=== PATIENT | female | born 1955 | race Caucasian/White ===

== ENCOUNTER 2016-08-18 16:31 | Emergency (ER) | payer MEDICAID ==
--- NOTE | 2016-08-18 16:51 | CPEKG ---
Heart Rate: 71 RR Interval: 845 P-R Interval: 152 QRSD Interval: 90 QT Interval: 396 QTC Interval: 431 P [place]: 72 QRS [place]: 50 T Wave [place]: 54 EKG Severity - NORMAL ECG - EKG Impression: SINUS RHYTHM Electronically Signed By: Pamela Petersen 25-Aug-2016 13:53:25
[2016-08-18] MEDS ORDERED: IPRATROPIUM/ALBUTEROL 3 ML DEYVIAL IH ONE (16:52)
--- NOTE | 2016-08-18 16:56 | EDPHY ---
H & P Stated Complaint: c/o coughing /sob x 2 wks with tight chest x 1 day Time Seen by Provider: 08/18/16 16:42 HPI/ROS: 61-year-old female with history of COPD presents complaining of productive green cough, shortness of breath and wheezing for a few days. She states she has had pneumonia several times in the past she believes this is just bronchitis. She also states she has a history of chronic bronchitis. Review of systems As per HPI General no fever no chills no weakness HEENT no eye pain no eye discharge. No eye redness, no sore throat Respiratory positive cough, no shortness of breath Cardiac positive chest pain, no peripheral edema GI no abdominal pain, no diarrhea, no constipation, no nausea, no vomiting no flank pain, no hematuria, no dysuria Musculoskeletal no myalgias, no joint pain Heme no easy bruising, no easy bleeding Endo no polyuria, no polydipsia Skin no rashes, no pruritus Neuro no syncope, no dizziness, no headaches Psych is no suicidal ideation, no homicidal ideation Source: Patient - Personal History Current Tetanus Diphtheria and Acellular Pertussis (TDAP): Yes - Medical/Surgical History Hx Asthma: No Hx Chronic Respiratory Disease: Yes Hx Diabetes: No Hx Cardiac Disease: No Hx Renal Disease: No Hx Cirrhosis: No Hx Alcoholism: No Hx HIV/AIDS: No Hx Splenectomy or Spleen Trauma: No Other PMH: Hypothyroid, COPD, psoriasis. hysterectomy, - Family History Significant Family History: No pertinent family hx - Social History Smoking Status: Heavy smoker Drug Use: Marijuana - Physical Exam Exam: 61-year-old female Alert and oriented nontoxic appearance, no acute distress afebrile Atraumatic normocephalic Extraocular muscles intact, anicteric Nares mild yellowish discharge Oropharynx mild erythema no tonsillar swelling no exudate no uvular deviation, tolerating own secretions Neck supple no lymphadenopathy Lungs clear to auscultation bilaterally, scattered wheeze Heart regular rate and rhythm Abdomen normoactive bowel sounds soft nontender Extremities no cyanosis clubbing or edema Skin no rash Constitutional: Initial Vital Signs Temperature (C) 37.2 C 08/18/16 16:39 Heart Rate 77 08/18/16 16:39 Respiratory Rate 20 08/18/16 16:39 Blood Pressure 97/76 L 08/18/16 16:39 O2 Sat (%) 90 L 08/18/16 16:39 O2 Delivery Mode Room Air O2 (L/minute) 2 Allergies/Adverse Reactions: No Allergies [NKDA] Allergy (Verified 07/11/14 20:14) Home Medications: Medication Instructions Recorded Tiotropium Inhaler [Spiriva 1 puffs IH DAILY 08/14/13 Inhaler (RX)] Omeprazole Magnesium [Prilosec Otc] 20 mg PO DAILY 07/11/14 Pravastatin Sodium 20 mg PO HS 07/11/14 Albuterol [Proventil Neb] 3 ml IH DAILY 08/08/14 Aspirin EC [Aspirin EC 81 mg (*)] 81 mg PO DAILY 08/08/14 Betamethasone Dipropionate 1 jonathan TP DAILY 08/08/14 Calcium Carbonate [Tums 500MG (*)] 1,000 - 1,500 mg PO DAILY PRN 08/08/14 Levothyroxine [Synthroid 88 mcg 88 mcg PO DAILY06 08/08/14 (*)] Albuterol [Proventil Inhaler HFA 1 - 2 puffs IH Q4H PRN 08/10/14 (*)] Amoxicillin/Clavulanate Pot 875 mg PO BID #20 tab 08/18/16 [Augmentin 875 MG TAB (*)] Proair Hfa 08/18/16 methylPREDNISolone [Medrol Dose 1 each PO AD #1 ea 08/18/16 Tacho] Medical Decision Making - Diagnostics Imaging Results: Imaging Impressions Chest X-Ray 08/18/16 16:53 Impression: 1. COPD/bronchitis with no acute findings. 2. Grossly stable calcified masses. 3. Additional findings as above. ED Course/Re-evaluation: Medical decision making and ER course Patient presents complaining of productive green cough and wheezing for several days Chest x-ray negative for infiltrate EKG normal sinus rhythm no signs of ischemia Lab sent CBC within normal limits Troponin negative BMP negative Differential diagnosis considered URI, bronchitis, pneumonia, COPD exacerbation, mi While in the ER patient received prednisone 60 mg p.o., IV normal saline 1 L, DuoNeb Breath sounds markedly improved after DuoNeb Impression Acute on chronic bronchitis with COPD exacerbation Plan Home with Medrol Dosepak, Augmentin 875 twice daily times 10 days - Data Points Laboratory Results: Laboratory Results 08/18/16 16:51 08/18/16 16:51 08/18/16 08/18/16 16:51 16:51 WBC 7.33 10^3/uL 10^3/uL (3.80-9.50) RBC 5.12 10^6/uL 10^6/uL (4.18-5.33) Hgb 16.0 g/dL g/dL (12.6-16.3) Hct 48.1 % H % (38.0-47.0) MCV 93.9 fL fL (81.5-99.8) MCH 31.3 pg pg (27.9-34.1) MCHC 33.3 g/dL g/dL (32.4-36.7) RDW 12.5 % % (11.5-15.2) Plt Count 313 10^3/uL 10^3/uL (150-400) MPV 9.6 fL fL (8.7-11.7) Neut % (Auto) Not Reported Lymph % (Auto) Not Reported [place] % (Auto) Not Reported Eos % (Auto) Not Reported Baso % (Auto) Not Reported Nucleat RBC Rel Count 0.0 % % (0.0-0.2) Absolute Neuts (auto) Not Reported Absolute Lymphs (auto) Not Reported Absolute Monos (auto) Not Reported Absolute Eos (auto) Not Reported Absolute Basos (auto) Not Reported Absolute Nucleated RBC 0.00 10^3/uL 10^3/uL (0-0.01) Immature Gran % Not Reported Seg Neutrophils % 43 % % Lymphocytes % 42 % % Monocytes % 9 % % Eosinophils % 5 % % Basophils % 1 % % Immature Gran # Not Reported Absolute Seg Neuts 3.2 K/MM3 K/MM3 (1.8-7) Absolute Lymphocytes 3.1 K/mm3 K/mm3 (1.0-4.8) Absolute Monocytes 0.7 K/mm3 K/mm3 (0-0.8) Absolute Eosinophils 0.4 K/mm3 K/mm3 (0-0.5) Absolute Basophils 0.1 K/mm3 K/mm3 (0-0.2) RBC/WBC/PLT Morphology NORMAL (NORMAL) Atypical Lymphocytes 1+ H Platelet Estimate ADEQUATE (ADEQ) Sodium 139 mEq/L mEq/L (134-144) Potassium 4.3 mEq/L mEq/L (3.5-5.2) Chloride 102 mEq/L mEq/L (97-110) Carbon Dioxide 25 mEq/l mEq/l (22-31) Anion Gap 12 mEq/L mEq/L (8-16) BUN 14 mg/dL mg/dL (7-23) Creatinine 0.8 mg/dL mg/dL (0.6-1.0) Estimated GFR > 60 Glucose 101 mg/dL H mg/dL (70-100) Calcium 9.0 mg/dL mg/dL (8.5-10.4) Total Bilirubin 0.8 mg/dL mg/dL (0.1-1.4) AST 19 IU/L IU/L (14-46) ALT 32 IU/L IU/L (9-52) Alkaline Phosphatase 66 IU/L IU/L (38-126) Troponin I < 0.012 ng/mL ng/mL (0-0.034) NT-Pro-B Natriuret Pep 24 pg/mL pg/mL (0-125) Total Protein 6.9 g/dL g/dL (6.3-8.2) Albumin 3.8 g/dL g/dL (3.5-5.0) Medications Given: Discontinued Medications Albuterol/Ipratropium (Duoneb) 3 ml IH EDNOW ONE Stop: 08/18/16 16:53 Last Admin: 08/18/16 16:55 Dose: 3 ml Sodium Chloride (Ns) 1,000 mls @ 0 mls/hr IV ONCE ONE PRN Reason: Wide Open Stop: 08/18/16 17:25 Last Admin: 08/18/16 17:24 Dose: 1,000 mls Prednisone (Prednisone) 60 mg PO EDNOW ONE Stop: 08/18/16 18:00 Last Admin: 08/18/16 18:00 Dose: 60 mg Departure - Departure Disposition: Home, Routine, Self-Care Clinical Impression: Acute bronchitis, Chronic obstructive pulmonary disease with acute exacerbation Condition: Good Instructions: Acute Bronchitis (ED), COPD (Chronic Obstructive Pulmonary Disease) (ED), Chronic Bronchitis (ED) Referrals: NONE *PRIMARY CARE P,. [Primary Care Provider] - As per Instructions Prescriptions: Amoxicillin/Clavulanate Pot [Augmentin 875 MG TAB (*)] 875 mg PO BID #20 tab methylPREDNISolone [Medrol Dose [place]] 1 each PO AD #1 ea
[2016-08-18 16:58] LABS: ADD MORPH? NO; FRAGMENT RBC FLAG 0 (0-99); HEMATOCRIT 48.1 % (38.0-47.0); LEFT SHIFT FLG 0 (0-99); LIPEMIA HEMOLYSIS FLAG 80 (0-99); MEAN CELL HEMOGLOBIN 31.3 pg (27.9-34.1); MEAN CELL HEMOGLOBIN CONCENTR. 33.3 g/dL (32.4-36.7); MEAN CELL VOLUME 93.9 fL (81.5-99.8); MEAN PLATELET VOLUME 9.6 fL (8.7-11.7); PLATELET CLUMPS FLAG 0 (0-99); PLATELET COUNT 313 10^3/uL (150-400); RED BLOOD CELL COUNT 5.12 10^6/uL (4.18-5.33); RED CELL DISTRIBUTION WIDTH 12.5 % (11.5-15.2)
[2016-08-18 17:02] LABS: ADD DIFF? YES; ATYPICAL LYMPHOCYTE FLAG 100 (0-99)
[2016-08-18 17:03] LABS: ADD SCAN? NO
[2016-08-18 17:20] LABS: ANION GAP 12 mEq/L (8-16); CARBON DIOXIDE 25 mEq/l (22-31); CHLORIDE 102 mEq/L (97-110); POTASSIUM 4.3 mEq/L (3.5-5.2); SODIUM 139 mEq/L (134-144)
[2016-08-18 17:21] LABS: ALANINE AMINOTRANSFERASE 32 IU/L (9-52); ALBUMIN 3.8 g/dL (3.5-5.0); ALKALINE PHOSPHATASE 66 IU/L (38-126); ASPARTATE AMINOTRANSFERASE 19 IU/L (14-46); BILIRUBIN,TOTAL 0.8 mg/dL (0.1-1.4); CREATININE 0.8 mg/dL (0.6-1.0); GLOMERULAR FILTRATION RATE > 60; GLUCOSE 101 mg/dL (70-100); TOTAL PROTEIN 6.9 g/dL (6.3-8.2)
[2016-08-18] MEDS: NS 1,000 ML IV ONE (17:24)
[2016-08-18 17:32] LABS: TROPONIN I < 0.012 ng/mL (0-0.034)
[2016-08-18 17:42] LABS: PLATELET ESTIMATE ADEQUATE (ADEQ)
[2016-08-18] MEDS ORDERED: predniSONE 20 MG TAB PO ONE (17:59)
[2016-08-18 18:12] VITALS: BP 103/74; PULSE 70; RESP 17; TEMP 98.4; O2SAT 92
== END 2016-08-18 18:23 | disposition home or self-care (01) ==
LOC: CED 16:31
DX: J20.9 Acute bronchitis, unspecified (principal); J44.1 Chronic obstructive pulmonary disease with (acute) exacerbation; F17.200 Nicotine dependence, unspecified, uncomplicated; Z79.82 Long term (current) use of aspirin
CPT/HCPCS: 71020-PO; 80053-PO; 83880-PO; 84484-PO; 85025-PO

== ENCOUNTER 2017-05-18 17:41 | Emergency (ER) | payer MEDICAID ==
[2017-05-18 17:48] VITALS: O2SAT 93
--- NOTE | 2017-05-18 18:05 | EDPHY ---
HPI/HX/ROS/PE/MDM Narrative: CHIEF COMPLAINT: Difficulty breathing. HPI: This patient is a 62 year old female with history of COPD complaining of difficulty breathing. She has had a cough, shortness of breath, body aches, and chills worsening over the last week. She developed a productive cough with green sputum. The patient visited her primary care provider Sunday and has been taking 60mg Prednisone without relief. She states she did not have a chest x- ray or flu swab but did receive a flu shot at that visit. She is especially concerned as she has had pneumonia three times in the past with similar symptoms. She denies fever, chest pain, vomiting, diarrhea, or other associated symptoms. REVIEW OF SYSTEMS: Aside from elements discussed in the HPI, a comprehensive 10-point review of systems was reviewed and is negative. PMH: Hypothyroid, COPD, Psoriasis, Hysterectomy, SOCIAL HISTORY: Lives in [place]. Employed. Heavy tobacco use. PHYSICAL EXAM: General:Patient is alert, in no acute distress. ENT:Eyes are normal to inspection. ENT inspection normal. Neck: Normal inspection. Full range of motion. Respiratory: Poor air movement with retractions. Cardiovascular: Regular rate and rhythm. Strong peripheral pulses. Normal cap refill. Abdomen:The abdomen is nontender to palpation. There are no peritoneal signs. There are normal bowel sounds. Back: Normal to inspection. No tenderness to palpation. Skin: Normal color. No rash. Warm and dry. Extremities: Normal appearance. Full range of motion. Neuro: Oriented x3. Normal motor function. Normal sensory function. ED Course: 62 y/o female with history of COPD presents with difficulty breathing. RR 38, HR 105 at triage. The patient has poor air movement with retractions. Plan to administer DuoNeb. IV established. Plan for labs including CBC, chemistries, Troponin, flu swab, and blood cultures. Plan to administer 1L IV NS. Chest x-ray consistent with COPD. No evidence of pneumonia. Flu swab negative. Troponin negative. WBC elevated at 16,000. Reassessed patient. Discussed results. Plan to discharge home in good condition with prescription for prednisone and azithromycin. Follow up and return precautions discussed. She is comfortable with this plan. MDM: This patient presents with what appears to be an exacerbation of her chronic lung disease. Workup is negative for PNA or ACS. She is much improved after nebulizer and steroids. I think she would benefit from extending her steroid course and empiric antibiotics. She is comfortable with this plan. Her flu swab is negative. She has no complaints of chest pain to suggest PE. She is not hypoxic. - Data Points Imaging Results: Imaging Impressions Chest X-Ray 05/18/17 18:10 Impression: Gradually progressive interstitial lung disease. Stable bilateral upper lung masses. Imaging: I viewed and interpreted images myself Laboratory Results: Laboratory Results 05/18/17 18:15 05/18/17 18:15 05/18/17 05/18/17 05/18/17 18:15 18:15 18:15 WBC 16.54 10^3/uL H 10^3/uL (3.80-9.50) RBC 4.74 10^6/uL 10^6/uL (4.18-5.33) Hgb 15.0 g/dL g/dL (12.6-16.3) Hct 45.4 % % (38.0-47.0) MCV 95.8 fL fL (81.5-99.8) MCH 31.6 pg pg (27.9-34.1) MCHC 33.0 g/dL g/dL (32.4-36.7) RDW 13.1 % % (11.5-15.2) Plt Count 347 10^3/uL 10^3/uL (150-400) MPV 9.4 fL fL (8.7-11.7) Neut % (Auto) 71.0 % % (39.3-74.2) Lymph % (Auto) 18.1 % % (15.0-45.0) [place] % (Auto) 9.6 % % (4.5-13.0) Eos % (Auto) 0.4 % L % (0.6-7.6) Baso % (Auto) 0.5 % % (0.3-1.7) Nucleat RBC Rel Count 0.0 % % (0.0-0.2) Absolute Neuts (auto) 11.74 10^3/uL H 10^3/uL (1.70-6.50) Absolute Lymphs (auto) 2.99 10^3/uL 10^3/uL (1.00-3.00) Absolute Monos (auto) 1.59 10^3/uL H 10^3/uL (0.30-0.80) Absolute Eos (auto) 0.07 10^3/uL 10^3/uL (0.03-0.40) Absolute Basos (auto) 0.08 10^3/uL 10^3/uL (0.02-0.10) Absolute Nucleated RBC 0.00 10^3/uL 10^3/uL (0-0.01) Immature Gran % 0.4 % % (0.0-1.1) Immature Gran # 0.07 10^3/uL 10^3/uL (0.00-0.10) Sodium 136 mEq/L mEq/L (135-145) Potassium 4.0 mEq/L mEq/L (3.5-5.2) Chloride 97 mEq/L mEq/L (97-110) Carbon Dioxide 25 mEq/l mEq/l (22-31) Anion Gap 14 mEq/L mEq/L (8-16) BUN 13 mg/dL mg/dL (7-23) Creatinine 0.7 mg/dL mg/dL (0.6-1.0) Estimated GFR > 60 Glucose 107 mg/dL H mg/dL (70-100) Calcium 9.3 mg/dL mg/dL (8.5-10.4) Troponin I < 0.012 ng/mL ng/mL (0.000-0.034) Nasal Influenza A PCR NEGATIVE FOR FLU A (NEGATIVE) Nasal Influenza B PCR NEGATIVE FOR FLU B (NEGATIVE) Medications Given: Discontinued Medications Albuterol/Ipratropium (Duoneb) 3 ml IH EDNOW ONE Stop: 05/18/17 18:10 Last Admin: 05/18/17 18:33 Dose: 3 ml Sodium Chloride (Ns) 1,000 mls @ 0 mls/hr IV ONCE ONE; Wide Open PRN Reason: Protocol Stop: 05/18/17 18:10 Last Admin: 05/18/17 18:33 Dose: 1,000 mls General Time Seen by Provider: 05/18/17 17:59 Initial Vital Signs: Initial Vital Signs Temperature (C) 37.1 C 05/18/17 17:46 Heart Rate 105 H 05/18/17 17:46 Respiratory Rate 38 H 05/18/17 17:46 Blood Pressure 149/77 H 02/16/18 17:46 O2 Sat (%) 93 05/18/17 17:46 O2 Delivery Mode Room Air Allergies/Adverse Reactions: No Allergies [NKDA] Allergy (Verified 05/18/17 17:45) Home Medications: Medication Instructions Recorded Tiotropium Inhaler [Spiriva 1 puffs IH DAILY 08/14/13 Inhaler (RX)] Omeprazole Magnesium [Prilosec Otc] 20 mg PO DAILY 07/11/14 Pravastatin Sodium 20 mg PO HS 07/11/14 Albuterol [Proventil Neb] 3 ml IH DAILY 08/08/14 Aspirin EC [Aspirin EC 81 mg (*)] 81 mg PO DAILY 08/08/14 Betamethasone Dipropionate 1 jonathan TP DAILY 08/08/14 Calcium Carbonate [Tums 500MG (*)] 1,000 - 1,500 mg PO DAILY PRN 08/08/14 Levothyroxine [Synthroid 88 mcg 88 mcg PO DAILY06 08/08/14 (*)] Albuterol [Proventil Inhaler HFA 1 - 2 puffs IH Q4H PRN 08/10/14 (*)] Proair Hfa 08/18/16 methylPREDNISolone [Medrol Dose 1 each PO AD #1 ea 08/18/16 Tacho] Azithromycin [Zithromax] 250 mg PO DAILY #6 tab 05/18/17 predniSONE 60 mg PO DAILY #9 tab 05/18/17 Departure - Departure Disposition: Home, Routine, Self-Care Clinical Impression: Chronic obstructive pulmonary disease with acute exacerbation Condition: Good Instructions: Prednisone (By mouth), Azithromycin (By mouth), COPD (Chronic Obstructive Pulmonary Disease) (ED) Additional Instructions: 1. Take Prednisone as prescribed. 2. Take Azithromycin as prescribed. 3. Follow up with your primary care provider. 4. Return to the emergency department for fever, chest pain, worsening shortness of breath, or other worsening of condition. Referrals: CARLOS DEXTER [Other] - As per Instructions Prescriptions: Azithromycin [Zithromax] 250 mg PO DAILY #6 tab predniSONE 60 mg PO DAILY #9 tab Report Scribed for: Angel Lam Report Scribed by: Kate Sahni Date of Report: 05/18/17 Time of Report: 18:09 Physician Review and Approval Statement: Portions of this note were transcribed by an ED scribe. I personally performed the history, physical exam, and medical decision making; and confirm the accuracy of the information in the transcribed note.
[2017-05-18] MEDS ORDERED: IPRATROPIUM/ALBUTEROL 3 ML DEYVIAL IH ONE (18:09)
[2017-05-18] MEDS ORDERED: NS 1,000 ML IV ONE (18:09)
[2017-05-18 18:30] LABS: PLATELET COUNT 347 10^3/uL (150-400)
[2017-05-18 20:47] VITALS: BP 145/78; PULSE 90; RESP 20; TEMP 98.6
== END 2017-05-18 20:47 | disposition home or self-care (01) ==
DX: J44.1 Chronic obstructive pulmonary disease with (acute) exacerbation (principal); E86.9 Volume depletion, unspecified

== ENCOUNTER 2018-03-30 16:08 | Emergency (ER) | payer MEDICAID ==
[2018-03-30] MEDS ORDERED: ONDANSETRON 4 MG/2 ML VIAL ONE (16:50)
[2018-03-30] MEDS ORDERED: NS 1,000 ML IV ONE ×2 (17:02→17:11)
[2018-03-30] MEDS ORDERED: ONDANSETRON 4 MG/2 ML VIAL IVP ONE (17:02)
--- NOTE | 2018-03-30 17:08 | EDPHY ---
H & P Stated Complaint: left sided chest pain with n/v, abdominal pain, diarrhea Time Seen by Provider: 03/30/18 17:07 - Personal History Current Tetanus/Diphtheria Vaccine: No - Medical/Surgical History Hx Asthma: No Hx Chronic Respiratory Disease: Yes Hx Diabetes: No Hx Cardiac Disease: No Hx Renal Disease: No Hx Cirrhosis: No Hx Alcoholism: No Hx HIV/AIDS: No Hx Splenectomy or Spleen Trauma: No Other PMH: Hypothyroid, COPD, psoriasis. hysterectomy, - Social History Smoking Status: Heavy smoker Constitutional: Initial Vital Signs Temperature (C) 36.9 C 03/30/18 16:13 Heart Rate 110 H 03/30/18 16:13 Respiratory Rate 16 03/30/18 16:13 Blood Pressure 114/91 H 03/30/18 16:13 O2 Sat (%) 87 L 03/30/18 16:13 O2 Delivery Mode Room Air O2 (L/minute) 2 Allergies/Adverse Reactions: No Allergies [NKDA] Allergy (Verified 05/18/17 17:45) Home Medications: Medication Instructions Recorded Tiotropium Inhaler [Spiriva 1 puffs IH DAILY 08/14/13 Inhaler (RX)] Albuterol [Proventil Neb] 3 ml IH DAILY 08/08/14 Albuterol [Proventil Inhaler HFA 1 - 2 puffs IH Q4H PRN 08/10/14 (*)] Proair Hfa 08/18/16 Medical Decision Making ED Course/Re-evaluation: CHIEF COMPLAINT: Nausea vomiting diarrhea HISTORY OF PRESENT ILLNESS: 62-year-old female who woke up this morning with nausea vomiting diarrhea. She was exposed to a grandchild over [place] who had similar illness. She denies any significant abdominal pain. She denies any fevers or chills. She has COPD and she is O2 dependent specifically at night but she does refuse to wear her oxygen. She feels dehydrated and every time she tries to drink anything she either vomits or has diarrhea. She came in here to get rehydrated and stop the nausea vomiting diarrhea. REVIEW OF SYSTEMS: A comprehensive 10 system review of systems is otherwise negative aside from elements mentioned in the history of present illness and medical decision making. PHYSICAL EXAM: HR, BP, O2 Sat, RR. Temp noted General Appearance: Alert, well hydrated, appropriate, and non-toxic appearing. Head: Atraumatic without scalp tenderness or obvious injury Eyes: Pupils equal, round, reactive to light and accommodation, EOMI, no trauma , no injection. Ears: Clear bilaterally, no perforation, normal landmarks Nose: Atraumatic, no rhinorrhea, clear. Throat: There is no erythema or exudates, no lesions, normal tonsils, mucus membranes moist. Neck: Supple, 2+ carotid upstroke, nontender, no lymphadenopathy. Respiratory: No retractions, no distress, no wheezes, and no accessory muscle use. Lungs are clear to auscultation bilaterally. Cardiovascular: Regular rate and rhythm, no murmurs, rubs, or gallops. Bilateral carotid, radial, dorsalis pedis, and posterior tibial pulses intact. Good capillary refill all extremities. Gastrointestinal: Abdomen is soft, nontender, non-distended, no masses, no rebound, no guarding, no peritoneal signs. Musculoskeletal: Normal active ROM of all extremities, atraumatic. Neurological: Alert, appropriate, and interactive. The patient has normal DTRs and non-focal cranial nerves, motor, sensory, and cerebellar exam. Skin: No rashes, good turgor, no nodules on palpation. Past medical history: COPD O2 dependent Past surgical history: Noncontributory Family history: Noncontributory Social history: , employed, does not abuse drugs or alcohol. DIFFERENTIAL DIAGNOSIS: The differential diagnosis for the patient's nausea and vomiting and diarrhea included but was not limited to gastroenteritis, gastritis, appendicitis, and medication side effect. MEDICAL DECISION MAKING: This patient is in no distress. I have started her on IV fluids. Additionally she received some Zofran and a small amount of morphine to settle her crampy stomach. She starting up p. O. Trial with some ice chips at this point is starting to a ready feel quite good. A small amount oxygen is over, her oxygen deficit which is chronic and not acute. - Data Points Laboratory Results: Laboratory Results 03/30/18 16:55 03/30/18 16:55 03/30/18 03/30/18 16:55 16:55 WBC 11.92 10^3/uL H 10^3/uL (3.80-9.50) RBC 5.87 10^6/uL H 10^6/uL (4.18-5.33) Hgb 18.6 g/dL H g/dL (12.6-16.3) Hct 55.6 % H % (38.0-47.0) MCV 94.7 fL fL (81.5-99.8) MCH 31.7 pg pg (27.9-34.1) MCHC 33.5 g/dL g/dL (32.4-36.7) RDW 13.0 % % (11.5-15.2) Plt Count 322 10^3/uL 10^3/uL (150-400) MPV 9.5 fL fL (8.7-11.7) Neut % (Auto) 90.1 % H % (39.3-74.2) Lymph % (Auto) 4.1 % L % (15.0-45.0) [place] % (Auto) 4.2 % L % (4.5-13.0) Eos % (Auto) 0.7 % % (0.6-7.6) Baso % (Auto) 0.4 % % (0.3-1.7) Nucleat RBC Rel Count 0.0 % % (0.0-0.2) Absolute Neuts (auto) 10.74 10^3/uL H 10^3/uL (1.70-6.50) Absolute Lymphs (auto) 0.49 10^3/uL L 10^3/uL (1.00-3.00) Absolute Monos (auto) 0.50 10^3/uL 10^3/uL (0.30-0.80) Absolute Eos (auto) 0.08 10^3/uL 10^3/uL (0.03-0.40) Absolute Basos (auto) 0.05 10^3/uL 10^3/uL (0.02-0.10) Absolute Nucleated RBC 0.00 10^3/uL 10^3/uL (0-0.01) Immature Gran % 0.5 % % (0.0-1.1) Immature Gran # 0.06 10^3/uL 10^3/uL (0.00-0.10) RBC/WBC/PLT Morphology TNP Platelet Estimate TNP Sodium 133 mEq/L L mEq/L (135-145) Potassium 4.7 mEq/L mEq/L (3.5-5.2) Chloride 101 mEq/L mEq/L (97-110) Carbon Dioxide 22 mEq/l mEq/l (22-31) Anion Gap 10 mEq/L mEq/L (6-14) BUN 21 mg/dL mg/dL (7-23) Creatinine 0.8 mg/dL mg/dL (0.6-1.0) Estimated GFR > 60 Glucose 101 mg/dL H mg/dL (70-100) Calcium 9.5 mg/dL mg/dL (8.5-10.4) Medications Given: Discontinued Medications Sodium Chloride (Ns) 1,000 mls @ 0 mls/hr IV ONCE ONE PRN Reason: Wide Open Stop: 03/30/18 17:03 Last Admin: 03/30/18 17:03 Dose: 1,000 mls Sodium Chloride (Ns) 1,000 mls @ 0 mls/hr IV EDNOW ONE; Wide Open PRN Reason: Protocol Stop: 03/30/18 17:12 Last Admin: 03/30/18 17:49 Dose: 1,000 mls Ketorolac Tromethamine (Toradol) 30 mg IVP EDNOW ONE Stop: 03/30/18 17:12 Last Admin: 03/30/18 17:23 Dose: 30 mg Morphine Sulfate (Morphine) 4 mg IVP EDNOW ONE Stop: 03/30/18 17:12 Last Admin: 03/30/18 17:23 Dose: 4 mg Ondansetron HCl (Zofran) 4 mg IVP EDNOW ONE Stop: 03/30/18 17:03 Last Admin: 03/30/18 17:03 Dose: 4 mg Departure - Departure Disposition: Home, Routine, Self-Care Clinical Impression: Nausea & vomiting Qualifiers: Vomiting type: unspecified Vomiting Intractability: non-intractable Qualified Code(s): R11.2 - Nausea with vomiting, unspecified Condition: Good Instructions: Acute Nausea and Vomiting (ED) Additional Instructions: Follow-up with your primary doctor within 2-3 days. Stay well hydrated. Take Zofran as prescribed as needed for nausea. Return to the Emergency Department for worsening pain, fever, severe vomiting, change in character or severity of pain or other worsening of condition. Referrals: Sarah Bowen MD [Medical Doctor] - As per Instructions
[2018-03-30] MEDS ORDERED: KETOROLAC 30 MG/1 ML SDV IVP ONE (17:11)
[2018-03-30 17:21] LABS: PLATELET COUNT 322 10^3/uL (150-400)
[2018-03-30] MEDS ORDERED: ONDANSETRON 4MG PREPACK#2 BTL TAKEHOME ONE (19:41)
[2018-03-30 20:02] VITALS: BP 99/59
== END 2018-03-30 20:02 | disposition home or self-care (01) ==
DX: R11.2 Nausea with vomiting, unspecified (principal); R07.9 Chest pain, unspecified; R10.9 Unspecified abdominal pain; R19.7 Diarrhea, unspecified; E03.9 Hypothyroidism, unspecified; J44.9 Chronic obstructive pulmonary disease, unspecified
CPT/HCPCS: 96374; J1885; J2270; J2405

== ENCOUNTER 2018-05-11 17:05 | Emergency (ER) | payer MEDICAID ==
[2018-05-11] MEDS ORDERED: IPRATROPIUM/ALBUTEROL 3 ML DEYVIAL IH ONE (18:14)
[2018-05-11] MEDS ORDERED: predniSONE 20 MG TAB PO ONE (18:14)
--- NOTE | 2018-05-11 18:17 | EDPHY ---
General Time Seen by Provider: 05/11/18 17:39 Narrative: CLINICAL IMPRESSION: COPD exacerbation ASSESSMENT/PLAN: A 63-year-old female with a history of COPD presents to the emergency department with 3 days of URI symptoms, cough, shortness of breath and sinus pressure. Patient is caring for her ailing 32-year-old son with renal failure. She arrives hypoxic at 85% on room air, reports not using home oxygen, reports she is compliant with her inhalers. She is afebrile, no tachycardia, and does not appear toxic or septic. She received a DuoNeb with improvement in her lung sounds and improved oxygenation to 90% on room air which she reports is baseline for her. Chest x-ray shows stable pulmonary nodules compared to x- ray of 2013. She does appear to be developing a possible early right middle lobe pneumonia. Given her comorbidities, patient was started on steroids and antibiotics. She was given initial dose of both in the ER tonight. Encouraged primary care follow-up on Sunday. Low threshold for return to ED sooner as outlined in person and in discharge papers. DIFFERENTIAL DX: Differential includes but not limited to acute sinusitis, bronchitis, COPD exacerbation, pneumonia, reactive airway disease, hypoxia ED PROCEDURES: See lab and/or imaging results below ED COURSE: 6:15 p.m.. Patient assessed. Plan for chest x-ray, initial dose of prednisone and DuoNeb. Flu test declined 6:50 p.m.:. Preliminary review of x-ray shows bilateral upper lobe pulmonary masses, compared to May 2017, these appear unchanged although final radiology interpretation pending. Patient may have an interval development of left lower lobe pneumonia. Reviewed with Dr. Garcia. Patient updated. Sleeping comfortably. Reports her oxygen always drops at night when she sleeps but she does not use oxygen at night. I turned her oxygen off and she is saturating 90% laying down. No respiratory distress. Will plan for steroid, antibiotic, and continue her albuterol at home. Low threshold for returning to ED. Patient does not wish to be admitted. She will follow up with primary care. CHIEF COMPLAINT: Cold symptoms, sinus headache HPI: 63-year-old female with past medical history of COPD presents to the emergency department with 3 days of cold symptoms, sinus pressure, cough and "coughing up green phlegm". Patient reports she feels chilled. She is caring for her 32- year-old son with renal failure on dialysis. She also has 2 ill children in the home. She has not taken anything for her symptoms. She reports she has been too weak to drink much water today. She reports her oxygen is normally between 89 and 90 and does not wear oxygen during the day or night. She was hypoxic on arrival at 85%. No reported abdominal pain, nausea, vomiting, diarrhea. She states she is compliant with Spiriva and albuterol and has been taking these for the last 3 days. She did not get a flu shot this year PAST MEDICAL HISTORY: COPD see ED nurse triage note Pertinent Past Surgical History: None reported Family History: Noncontributory Social History: Smoker, COPD REVIEW OF SYSTEMS: A full 10 point review of systems was negative except for those mentioned in HPI. PHYSICAL EXAM: General Appearance: Alert, oriented, appropriate, cooperative, NAD, well hydrated, non-toxic appearing, smells heavily of smoke, hypoxic at 85% on room air HEENT: TMs are clear bilaterally no perforation or FB, no injection, no evidence of serous or mucopurulent otitis. Oropharynx with very dry mucous membranes, clear is no erythema or exudates, no tonsillar hypertrophy or asymmetry. Dentition without abnormality. Eyes: PERRLA, no acute vision change, nystagmus, swelling, discharge, pain or photosensitivity. Conjunctiva pink, no pallor or injection Neck: Supple, nontender, no lymphadenopathy, no midline pain, FROM, no meningismus. Respiratory: Diminished breath sounds throughout, expiratory wheezing in all lung cope Cardiac: Regular rate and rhythm, no murmurs or gallops. Skin: Warm, dry, no rashes, no nodules on palpation. MEDICAL DECISION MAKING: Patient was seen independently. Secondary supervising physician at time of evaluation was: Dr. Pacheco . Diagnosis: COPD exacerbation. New, requires workup Summary: See Assessment and Plan for summary of ED visit Independent visualization of images, tracing, or specimens: Yes. Patient Progress: Improved, stable for discharge. - Diagnostics Imaging Results: Imaging Impressions Chest X-Ray 05/11/18 18:14 Impression: Evidence of underlying interstitial lung disease bilaterally. New subtle nodular opacification in the right midlung, which could represent an early infiltrate. Stable bilateral upper lobe pulmonary masses. - History Smoking Status: Heavy smoker - Objective Vital Signs: Initial Vital Signs Temperature (C) 37.6 C 05/11/18 17:09 Heart Rate 107 H 05/11/18 17:09 Respiratory Rate 20 05/11/18 17:09 Blood Pressure 123/84 H 05/11/18 17:09 O2 Sat (%) 85 L 05/11/18 17:09 O2 Delivery Mode Room Air O2 (L/minute) 1 Allergies/Adverse Reactions: No Allergies [NKDA] Allergy (Verified 05/18/17 17:45) Home Medications: Medication Instructions Recorded Tiotropium Inhaler [Spiriva 1 puffs IH DAILY 08/14/13 Inhaler (RX)] Albuterol [Proventil Neb] 3 ml IH DAILY 08/08/14 Albuterol [Proventil Inhaler HFA 1 - 2 puffs IH Q4H PRN 08/10/14 (*)] Proair Hfa 08/18/16 Ondansetron Odt [Zofran Odt 4 mg 4 mg PO Q4 PRN #10 tab 03/30/18 (RX)] Amox Tr/Potassium Clavulanate 1 each PO BID #20 tab 05/11/18 [Augmentin 1000MG ER Tablet (*)] Doxycycline Hyclate 100 mg PO BID #20 tab 05/11/18 predniSONE [Prednisone] 40 mg PO DAILY #20 tablet 05/11/18 Medications Given: Discontinued Medications Albuterol/Ipratropium (Duoneb) 3 ml IH EDNOW ONE Stop: 05/11/18 18:15 Last Admin: 05/11/18 18:34 Dose: 3 ml Amoxicillin/Clavulanate Potassium (Augmentin 1000mg Er Tablet) 1 each PO EDNOW ONE PRN Reason: Protocol Stop: 05/11/18 19:19 Last Admin: 05/11/18 19:46 Dose: 1 each Aspirin (Aspirin) 325 mg PO EDNOW ONE Stop: 05/11/18 20:04 Last Admin: 05/11/18 19:51 Dose: 325 mg Doxycycline Hyclate (Doxycycline Hyclate) 100 mg PO EDNOW ONE PRN Reason: Protocol Stop: 05/11/18 19:19 Last Admin: 05/11/18 19:46 Dose: 100 mg Prednisone (Prednisone) 40 mg PO EDNOW ONE Stop: 05/11/18 18:15 Last Admin: 05/11/18 18:35 Dose: 40 mg Departure - Departure Disposition: Home, Routine, Self-Care Clinical Impression: COPD exacerbation Condition: Fair Instructions: COPD (Chronic Obstructive Pulmonary Disease) (ED) Additional Instructions: DISCHARGE INSTRUCTIONS FROM YOUR DOCTOR Thank you for visiting our emergency department today. Please keep in mind that discharge from the emergency department does not mean that there is nothing wrong - it simply means that we have not identified an emergency condition that requires further evaluation or treatment in the hospital. You should always plan to follow up with primary care for re-evaluation of your condition in the next 2-3 days. If you have been referred to a specialist, please call as soon as possible (today or tomorrow) to schedule your follow up appointment at the appropriate time. CHEST X-RAY SHOWS PULMONARY NODULES AND POSSIBLY EARLY DEVELOPMENT OF A SMALL PNEUMONIA IN THE LEFT LOWER LOBE. WE ARE TREATING HER WITH ANTIBIOTICS, STEROIDS, AND RECOMMEND THAT YOU USE ALBUTEROL INHALER EVERY 4 HR THROUGH THE WEEKEND. PLEASE CALL PRIMARY CARE DOCTOR ON SUNDAY FOR FOLLOW-UP. STAY WELL- HYDRATED. RETURN TO THE EMERGENCY DEPARTMENT IMMEDIATELY FOR WORSENING COUGH, INCREASED SHORTNESS OF BREATH, EXERCISE INTOLERANCE, FEVERS, RACING HEART, NAUSEA OR VOMITING, OR ANY OTHER CONCERNS. People present with illnesses and injuries in different ways, and it is always possible that we have missed something. You may always return for re-evaluation if symptoms worsen or if they are not improving or if you develop new/different symptoms. Again, thank you for choosing our emergency department. We hope that you feel better. Referrals: NONE *PRIMARY CARE P,. [Primary Care Provider] - As per Instructions Elizabeth Morales DO [Doctor of Osteopathy] - 1-2 days without fail Prescriptions: Amox Tr/Potassium Clavulanate [Augmentin 1000MG ER Tablet (*)] 1 each PO BID # 20 tab Doxycycline Hyclate 100 mg PO BID #20 tab predniSONE [Prednisone] 40 mg PO DAILY #20 tablet
[2018-05-11] MEDS ORDERED: AMOX/CLAVUL 1000 MG ER TAB PO ONE (19:18)
[2018-05-11] MEDS ORDERED: DOXYCYCLINE HYCLATE 100 MG CAP/TAB PO ONE (19:18)
[2018-05-11 19:43] VITALS: BP 115/77
[2018-05-11] MEDS ORDERED: ASPIRIN 325 MG TAB ONE (19:55)
[2018-05-11] MEDS ORDERED: ASPIRIN 325 MG TAB PO ONE (20:03)
== END 2018-05-11 20:04 | disposition home or self-care (01) ==
DX: J44.1 Chronic obstructive pulmonary disease with (acute) exacerbation (principal); R09.02 Hypoxemia; F17.200 Nicotine dependence, unspecified, uncomplicated; R91.8 Other nonspecific abnormal finding of lung field
CPT/HCPCS: J7512

== ENCOUNTER 2018-07-12 19:05 | Inpatient (IN) | payer MEDICAID ==
[2018-07-12] MEDS ORDERED: NS 1,000 ML IV ONE (19:16)
[2018-07-12] MEDS ORDERED: ONDANSETRON 4 MG/2 ML VIAL IVP ONE (19:17)
[2018-07-12] MEDS ORDERED: IPRATROPIUM/ALBUTEROL 3 ML DEYVIAL IH ONE (19:30)
[2018-07-12] MEDS ORDERED: methylPREDNISolone SOD SUCC 125 MG/2 ML VIAL IVP ONE (19:30)
--- NOTE | 2018-07-12 19:30 | EDPHY ---
H & P Stated Complaint: N/V X 2 DAYS, HYPOXIC "SPITTING UP BLOOD", CHILLS Time Seen by Provider: 07/12/18 19:15 HPI/ROS: CHIEF COMPLAINT: Cough, vomiting HISTORY OF PRESENT ILLNESS: 63-year-old female with COPD presents with persistent cough and vomiting. Onset of a productive cough 1 week ago, now with streaks of blood. Vomiting started 2 days ago and unable to tolerate oral fluids or food in the past 2 days. Associated with moderate generalized weakness, subjective fever and fatigue. No shortness of breath or chest pain. No influenza vaccination this year. REVIEW OF SYSTEMS: complete 10 point ROS reviewed and is negative except for the noted elements in the HPI - Personal History Current Tetanus Diphtheria and Acellular Pertussis (TDAP): Unsure - Medical/Surgical History Hx Asthma: No Hx Chronic Respiratory Disease: Yes Hx Diabetes: No Hx Cardiac Disease: No Hx Renal Disease: No Hx Cirrhosis: No Hx Alcoholism: No Hx HIV/AIDS: No Hx Splenectomy or Spleen Trauma: No Other PMH: Hypothyroid, COPD, psoriasis. hysterectomy, - Social History Smoking Status: Heavy smoker - Physical Exam Exam: General Appearance: Alert, pleasant, nontoxic-appearing Eyes: Pupils equal and round, no conjunctival pallor ENT, Mouth: Mucous membranes moist Neck: Normal inspection Respiratory: Diffuse expiratory wheezing Cardiovascular: Regular rate and rhythm Gastrointestinal: Abdomen is soft and nontender Neurological: A&O, nonfocal, normal gait Skin: Warm and dry Extremities: Normal inspection Psychiatric: Mood and affect normal Constitutional: Initial Vital Signs Temperature (C) 37.2 C 07/12/18 19:09 Heart Rate 112 H 07/12/18 19:09 Respiratory Rate 22 H 07/12/18 19:09 Blood Pressure 125/86 H 07/12/18 19:09 O2 Sat (%) 85 L 07/12/18 19:09 O2 Delivery Mode Nasal Cannula O2 (L/minute) 4 Allergies/Adverse Reactions: No Allergies [NKDA] Allergy (Verified 05/18/17 17:45) Home Medications: Medication Instructions Recorded Albuterol [Proventil Neb] 3 ml IH DAILY 08/08/14 Albuterol [Proventil Inhaler HFA 1 - 2 puffs IH Q4H PRN 08/10/14 (*)] Cholesterol Medication 20 mg PO DAILY 07/12/18 Fluticasone/Salmeter 250/50Mcg 1 puffs IH BID 07/12/18 [Advair 250/50 (*)] Levothyroxine [Synthroid 100 mcg 100 mcg PO DAILY06 07/12/18 (*)] Omeprazole 20 mg PO DAILY 07/12/18 Ranitidine HCl [Zantac] 300 mg PO HS 07/12/18 Tiotropium Inhaler [Spiriva 18 mcg IH DAILY 07/12/18 Handihaler] Medical Decision Making - Diagnostics EKG Interpretation: EKG interpreted by me reveals normal sinus rhythm, rate 95, no ST or T segment changes. Interpretation: Normal EKG. Imaging Results: Imaging Impressions Chest X-Ray 07/12/18 19:16 Impression: 1. New consolidation/pneumonia in the lingula. 2. Relatively stable partially calcified lesions both upper lobes. Chest x-ray independently reviewed by me reveals a left lower lobe infiltrate. Imaging: I viewed and interpreted images myself ED Course/Re-evaluation: This patient presents with cough, hypoxia and persistent vomiting. Oxygen 2 L by nasal cannula applied. IV normal saline 1 L and Zofran 4 mg IV given. A DuoNeb and Solu-Medrol 125 mg IV given. Meets SIRS criteria with tachycardia and tachypnea. Initial lactate is normal. Chest x-ray reveals a left lower lobe infiltrate. Blood cultures were drawn and Levaquin IV given for pneumonia. Feels better after IV fluids and Zofran. Able to tolerate oral fluids. Also feels better after the DuoNeb. Repeat lung exam reveals persistent bronchospasm. Albuterol neb given. The hospitalist service was consulted for admission. I spent a total of [35] minutes of critical care time in obtaining history, performing a physical exam, bedside monitoring of interventions, collecting and interpreting tests and discussion with consultants but not including time spent performing procedures. Organ at risk: Pulmonary Differential Diagnosis: Differential diagnosis for fever includes pyelonephritis, cholecystitis, influenza, cellulitis, pneumonia, abscess, meningitis. - Data Points Laboratory Results: Laboratory Results 07/12/18 19:30 07/12/18 19:30 07/12/18 07/12/18 07/12/18 19:30 19:30 19:30 WBC 16.56 10^3/uL H 10^3/uL (3.80-9.50) RBC 5.09 10^6/uL 10^6/uL (4.18-5.33) Hgb 15.6 g/dL g/dL (12.6-16.3) Hct 45.8 % % (38.0-47.0) MCV 90.0 fL fL (81.5-99.8) MCH 30.6 pg pg (27.9-34.1) MCHC 34.1 g/dL g/dL (32.4-36.7) RDW 12.9 % % (11.5-15.2) Plt Count 266 10^3/uL 10^3/uL (150-400) MPV 10.0 fL fL (8.7-11.7) Neut % (Auto) 79.7 % H % (39.3-74.2) Lymph % (Auto) 9.8 % L % (15.0-45.0) [place] % (Auto) 9.5 % % (4.5-13.0) Eos % (Auto) 0.0 % L % (0.6-7.6) Baso % (Auto) 0.4 % % (0.3-1.7) Nucleat RBC Rel Count 0.0 % % (0.0-0.2) Absolute Neuts (auto) 13.20 10^3/uL H 10^3/uL (1.70-6.50) Absolute Lymphs (auto) 1.62 10^3/uL 10^3/uL (1.00-3.00) Absolute Monos (auto) 1.57 10^3/uL H 10^3/uL (0.30-0.80) Absolute Eos (auto) 0.00 10^3/uL L 10^3/uL (0.03-0.40) Absolute Basos (auto) 0.07 10^3/uL 10^3/uL (0.02-0.10) Absolute Nucleated RBC 0.00 10^3/uL 10^3/uL (0-0.01) Immature Gran % 0.6 % % (0.0-1.1) Immature Gran # 0.10 10^3/uL 10^3/uL (0.00-0.10) RBC/WBC/PLT Morphology TNP Platelet Estimate TNP VBG Lactic Acid 0.9 mmol/L mmol/L (0.7-2.1) Sodium 129 mEq/L L mEq/L (135-145) Potassium 4.3 mEq/L mEq/L (3.5-5.2) Chloride 92 mEq/L L mEq/L (97-110) Carbon Dioxide 24 mEq/l mEq/l (22-31) Anion Gap 13 mEq/L mEq/L (6-14) BUN 13 mg/dL mg/dL (7-23) Creatinine 0.7 mg/dL mg/dL (0.6-1.0) Estimated GFR > 60 Glucose 96 mg/dL mg/dL (70-100) Calcium 9.4 mg/dL mg/dL (8.5-10.4) Total Bilirubin 2.9 mg/dL H mg/dL (0.1-1.4) Conjugated Bilirubin 0.3 mg/dL mg/dL (0.0-0.5) Unconjugated Bilirubin 2.6 mg/dL H mg/dL (0.0-1.1) AST 17 IU/L IU/L (14-46) ALT 35 IU/L IU/L (9-52) Alkaline Phosphatase 71 IU/L IU/L (38-126) Total Protein 6.9 g/dL g/dL (6.3-8.2) Albumin 3.9 g/dL g/dL (3.5-5.0) Lipase 702 IU/L H IU/L (23-300) Medications Given: Discontinued Medications Albuterol (Proventil Neb) 3 ml IH EDNOW ONE Stop: 07/12/18 20:37 Last Admin: 07/12/18 21:19 Dose: 3 ml Albuterol/Ipratropium (Duoneb) 3 ml IH EDNOW ONE Stop: 07/12/18 19:31 Last Admin: 07/12/18 19:44 Dose: 3 ml Sodium Chloride (Ns) 1,000 mls @ 0 mls/hr IV ONCE ONE; Wide Open PRN Reason: Protocol Stop: 07/12/18 19:17 Last Admin: 07/12/18 19:31 Dose: 1,000 mls Levofloxacin/Dextrose (Levaquin 750 Mg (Premix)) 150 mls @ 100 mls/hr IV EDNOW ONE PRN Reason: Protocol Stop: 07/12/18 22:02 Last Admin: 07/12/18 21:18 Dose: 150 mls Ketorolac Tromethamine (Toradol) 15 mg IVP EDNOW ONE Stop: 07/12/18 21:29 Last Admin: 07/12/18 21:51 Dose: 15 mg Ketorolac Tromethamine (Toradol) 15 mg IVP ONCE ONE Stop: 07/12/18 21:44 Last Admin: 07/12/18 21:51 Dose: Not Given Methylprednisolone Sodium Succinate (Solu-Medrol) 125 mg IVP EDNOW ONE Stop: 07/12/18 19:31 Last Admin: 07/12/18 19:44 Dose: 125 mg Ondansetron HCl (Zofran) 4 mg IVP EDNOW ONE Stop: 07/12/18 19:18 Last Admin: 07/12/18 19:32 Dose: 4 mg Departure - Departure Disposition: [facility] Clinical Impression: Pneumonia, COPD exacerbation Condition: Fair
[2018-07-12 19:41] LABS: PLATELET COUNT 266 10^3/uL (150-400)
[2018-07-12] MEDS ORDERED: ALBUTEROL 3 ML DEYVIAL IH ONE (20:36)
[2018-07-12] MEDS ORDERED: KETOROLAC 15 MG/1 ML SDV IVP ONE ×2 (21:28→21:43)
--- NOTE | 2018-07-12 22:32 | CPEKG ---
Test Reason : OPEN Blood Pressure : / mmHG Vent. Rate : 095 BPM Atrial Rate : 096 BPM P-R Int : 145 ms QRS Dur : 097 ms QT Int : 349 ms P-R-T Axes : 053 018 032 degrees QTc Int : 439 ms Sinus rhythm Confirmed by Rosa Dickson ([id number]) on 07/12/2018 10:32:08 PM Referred By: ROSA DICKSON Confirmed By:Rosa Dickson
[2018-07-12] MEDS ORDERED: ONDANSETRON 4 MG/2 ML VIAL IVP PRN (22:57)
[2018-07-12] MEDS ORDERED: ALBUTEROL 3 ML DEYVIAL IH PRN (22:57)
[2018-07-12] MEDS ORDERED: ONDANSETRON DISINTEGRATING 4 MG TAB PO PRN (22:57)
[2018-07-12] MEDS ORDERED: ACETAMINOPHEN 325 MG TAB PO PRN (22:57)
[2018-07-12] MEDS ORDERED: IBUPROFEN 200 MG TAB PO PRN (22:57)
--- NOTE | 2018-07-13 03:53 | PDGENHP ---
History and Physical - Chief Complaint Cough, shortness of breath - History of Present Illness HPI - 63-year-old female with history of COPD on 2 liters/minute above continuous oxygen, hypothyroidism psoriasis presents emergency department today with complaints of persistent cough, fever and fatigue. Patient has been feeling ill and weaker over the last several days. He has had decline p.o. Intake of solids or liquids. She reported some nausea vomiting and diarrhea. She denies any dysuria hematuria. She also reports that she has had a productive cough copper colored sputum. Due to feeling quite ill she has had declining use of her scheduled and p.r.n. Inhalers. Patient is also requesting requiring increased O2 needs. She denies any associated shortness of breath or chest pain. She did have a headache earlier but this has since resolved. In the emergency department, patient was given steroids and multiple nebulizer treatments as well as IV fluids. Patient was noted to be quite dehydrated in appearance. History Information - Allergies/Home Medication List Allergies/Adverse Reactions: No Allergies [NKDA] Allergy (Verified 05/18/17 17:45) Home Medications: Albuterol [Proventil Neb] 3 ml IH DAILY 08/08/14 [Last Taken 07/12/18] Albuterol [Proventil Inhaler HFA (*)] 1 - 2 puffs IH Q4H PRN 08/10/14 [Last Taken 07/12/18] Cholesterol Medication 20 mg PO DAILY 07/12/18 [Last Taken 07/10/18] Fluticasone/Salmeter 250/50Mcg [Advair 250/50 (*)] 1 puffs IH BID 07/12/18 [ Last Taken Unknown] Levothyroxine [Synthroid 100 mcg (*)] 100 mcg PO DAILY06 07/12/18 [Last Taken ] Omeprazole 20 mg PO DAILY 07/12/18 [Last Taken Unknown] Ranitidine HCl [Zantac] 300 mg PO HS 07/12/18 [Last Taken Unknown] Tiotropium Inhaler [Spiriva Handihaler] 18 mcg IH DAILY 07/12/18 [Last Taken 01/18] I have personally reviewed and updated: family history, medical history, social history, surgical history - Past Medical History GERD Additional medical history: COPD on 2 LPM O2 baseline. hypothyroidism. psoriasis - Surgical History Additional surgical history: Hysterectomy. - Family History Additional family history: cancer, HTN - Social History Smoking Status: Heavy smoker Tobacco Use: Cigarettes (1 ppd) Alcohol Use: None Drug Use: None Additional social history: COR - FULL. Review of Systems Review of Systems: ROS: 10pt was reviewed & negative except for what was stated in HPI & below Constitutional: Reports: chills, fever, malaise, recent illness, weakness Cardiac: Reports: no symptoms Respiratory: Reports: cough, shortness of breath Gastrointestinal: Reports: vomitting, diarrhea, nausea Genitourinary: Reports: no symptoms Muscolosketal: Reports: no symptoms. Denies: muscle pain Skin: Reports: no symptoms Neurological: Reports: weakness (Generalized weakness) Hematologic/Lymphatic: Reports: no symptoms Physical Exam Physical Exam: Selected Entries 07/12/18 19:09 Blood Pressure Automatic Method Heart Rate 112 H Respiratory 22 H Rate O2 Sat (%) 85 L Temperature (C) 37.2 C Blood Pressure 125/86 H Mean Arterial 99 Pressure (MAP) O2 Delivery Room Air Mode Temperature Oral Source Temp Pulse Resp BP Pulse Ox 36.6 C 70 16 95/67 L 92 07/13/18 03:24 07/13/18 03:24 07/13/18 03:24 07/13/18 03:24 07/13/18 03:24 O2 (L/minute) 5 Constitutional: no apparent distress, appears nourished, not in pain, other ( NAD. Patient lays asleep in bed. She answers yes no questions falls back asleep. Does appear quite fatigued but nontoxic.) Eyes: other (No conjunctival injection. limited exam due to patient's somnolence.), No scleral injection Ears, Nose, Mouth, Throat: dry mucous membranes, other (No nasal discharge.) Cardiovascular: regular rate and rhythym, no murmur, rub, or gallop, pulses symmetric bilaterally, No edema Peripheral Pulses: 2+: dorsalis-pedis (R), dorsalis-pedis (L) Respiratory: no respiratory distress, reduced air movement (Diminished air movement in all lung cope.), inspiratory crackles (Few bibasilar crackles.), No expiratory wheeze Gastrointestinal: normoactive bowel sounds, soft, non-tender abdomen, no palpable masses, No tenderness, No distension Genitourinary: no bladder tenderness, No bolaños in urethra Skin: warm, normal color, no rashes or abrasions Musculoskeletal: other (Patient able to move all extremities while lying in bed. ) Neurologic: AAOx3 (Somnolent but wakes to name.), other (Grossly nonfocal exam. Moves all extremities as noted above.), No facial droop Psychiatric: not anxious, not encephalopathic, flat affect Lab Data & Imaging Review 07/12/18 19:30 07/12/18 19:30 WBC 16.56 10^3/uL (3.80-9.50) H 07/12/18 19: RBC 5.09 10^6/uL (4.18-5.33) 07/12/18: Hgb 15.6 g/dL (12.6-16.3) 07/12/18 19: Hct 45.8 % (38.0-47.0) 07/12/18: MCV 90.0 fL (81.5-99.8) 07/12/18: MCH 30.6 pg (27.9-34.1) 07/12/18: MCHC 34.1 g/dL (32.4-36.7) 07/12/18: RDW 12.9 % (11.5-15.2) 07/12/18 19: Plt Count 266 10^3/uL (150-400) 07/12/18: MPV 10.0 fL (8.7-11.7) 07/12/18: Neut % (Auto) 79.7 % (39.3-74.2) H 07/12/18: Lymph % (Auto) 9.8 % (15.0-45.0) L 07/12/18: Whitman % (Auto) 9.5 % (4.5-13.0) 07/12/18: Eos % (Auto) 0.0 % (0.6-7.6) L 07/12/18 19:30 Baso % (Auto) 0.4 % (0.3-1.7) 07/12/18: Nucleat RBC Rel Count 0.0 % (0.0-0.2) 07/12/18 19:30 Absolute Neuts (auto) 13.20 10^3/uL (1.70-6.50) H 07/12/18 19:30 Absolute Lymphs (auto) 1.62 10^3/uL (1.00-3.00) 07/12/18 19:30 Absolute Monos (auto) 1.57 10^3/uL (0.30-0.80) H 07/12/18:30 Absolute Eos (auto) 0.00 10^3/uL (0.03-0.40) L 07/12/18 19:30 Absolute Basos (auto) 0.07 10^3/uL (0.02-0.10) 07/12/18: Absolute Nucleated RBC 0.00 10^3/uL (0-0.01) 07/12/18: Immature Gran % 0.6 % (0.0-1.1) 07/12/18: Immature Gran # 0.10 10^3/uL (0.00-0.10) 07/12/18 19:30 RBC/WBC/PLT Morphology TNP 07/12/18 19: Platelet Estimate TNP 07/12/18 19: VBG Lactic Acid 0.9 mmol/L (0.7-2.1) 07/12/18: Sodium 129 mEq/L (135-145) L 07/12/18 19:30 Potassium 4.3 mEq/L (3.5-5.2) 07/12/18: Chloride 92 mEq/L (97-110) L 07/12/18: Carbon Dioxide 24 mEq/l (22-31) 07/12/18: Anion Gap 13 mEq/L (6-14) 07/12/18:30 BUN 13 mg/dL (7-23) 07/12/18:30 Creatinine 0.7 mg/dL (0.6-1.0) 07/12/18 19:30 Estimated GFR > 60 07/12/18 19:30 Glucose 96 mg/dL (70-100) 07/12/18: Calcium 9.4 mg/dL (8.5-10.4) 07/12/18: Total Bilirubin 2.9 mg/dL (0.1-1.4) H 07/12/18 19:30 Conjugated Bilirubin 0.3 mg/dL (0.0-0.5) 07/12/18 19:30 Unconjugated Bilirubin 2.6 mg/dL (0.0-1.1) H 07/12/18 19:30 AST 17 IU/L (14-46) 07/12/18 19:30 ALT 35 IU/L (9-52) 07/12/18 19:30 Alkaline Phosphatase 71 IU/L (38-126) 07/12/18 19:30 Total Protein 6.9 g/dL (6.3-8.2) 07/12/18 19:30 Albumin 3.9 g/dL (3.5-5.0) 07/12/18 19:30 Lipase 702 IU/L (23-300) H 07/12/18 19:30 Imaging Review: PA and lateral chest x-ray 2016 hours. History: Dyspnea with vomiting and chills. Findings: Comparison to 05/11/2018. Heart size and pulmonary vasculature remain normal. There is new moderate consolidation/pneumonia in the lingula. Biapical partially calcified lesions are once again seen. These are relatively stable dating back to 2012. Small left effusion is suspected. There is no pneumothorax. Osseous structures are unchanged. Old healed left rib fractures are evident. Impression: 1. New consolidation/pneumonia in the lingula. 2. Relatively stable partially calcified lesions both upper lobes. Dictated By: Mario Laureano MD Visualized and Interpreted EKG results: Yes EKG additional interpertation: NSR in 90s. No acute ST changes. QTC 439. Assessment & Plan Assessment: 63-year-old female with history of COPD on 2 liters/minute above continuous oxygen, hypothyroidism psoriasis presents emergency department today with complaints of persistent cough, fever and fatigue. #COPD exacerbation (Acute) - patient's symptoms have improved status post multiple nebulizer treatments, antibiotics and and solu-medrol. continue nebulizers prn. continue daily steroids for anticipated burst. respiratory pcr is pending. #PNA (pneumonia) (Acute) - lingula. Continue Rocephin and Levaquin at respiratory dosing. #severe sepsis - patient qualifies with initial tachycardia, leukocytosis and elevated bilirubin. blood cultures pending x 2. plan as noted above. #hyponatremia - suspect 2/2 acute hypovolemia in setting of dehydration. IVF replacement. monitor am BMP in AM. #tobacco dependence - cessation will be advised. #gerd - continue PPI and H2 castro. #elevated lipase - less than 3 times upper limit of normal. likely elevated in setting of nausea/vomiting. FEN - IVF overnight. s/p 1 liter in ED. monitor electrolytes/bmp. diet as tolerated. PPX - SCDs. lovenox. COR - FULL. Dispo - Patient admitted to inpatient status on med/surg flood for IV hydration , antibiotics. anticipate > 2 midnight stay given patient continued increased O2 need. will titrate and complete RA challenge in the morning.
[2018-07-13 04:47] LABS: PLATELET COUNT 210 10^3/uL (150-400)
[2018-07-13] MEDS ORDERED: PNEUMOCOCCAL 0.5ML VACCINE VIAL (PNEUMOVAX 23) IM ONE (08:10)
--- NOTE | 2018-07-13 08:21 | HOSPPROG ---
Hospitalist Progress Note Assessment/Plan: 63-year-old female with history of COPD on 2 liters/minute above continuous oxygen, hypothyroidism psoriasis presents emergency department today with complaints of persistent cough, fever and fatigue. First encounter, chart reviewed. #COPD exacerbation (Acute) -was given iv steroids in ER -change to oral prednisone -will ask nursing staff to do a room air challenge -resumed Spiriva (she has been busy caring for family and hasn't been using her inhalers) #PNA - lingula. -change to oral Levaquin -Resp PCR is negative #acute hypoxic respiratory failure -will closely monitor-on 4 to 5 liters -usually doesn't wear O2 -has oxygen at home #severe sepsis -initially patient was tachycardic, leukocytosis -resolving -blood cx pending #hyponatremia -improved. 2/2 dehydration #tobacco dependence - cessation will be advised. #gerd - continue PPI and H2 castro. #elevated lipase - likely due to the above, no abdominal pain #plan: Ashley is anxious to go home, her son in the hospital at [facility] and she is caring for his children. She has been quite ill herself the last few days. Explained to her, she need treatment for her pna. Will change her antibiotics to oral and do oral steroids. Will see how she does today. Subjective: Ashley is feeling better than when she came in Objective: Vital Signs Temp Pulse Resp BP Pulse Ox 36.5 C 70 16 103/72 87 L 07/13/18 07:27 07/13/18 07:27 07/13/18 07:27 07/13/18 07:27 07/13/18 07:27 Laboratory Results 07/13/18 04:17 07/13/18 04:17 07/12/18 07/13/18 07/14/18 05:59 05:59 05:59 Intake Total 1000 Balance 1000 - Physical Exam Constitutional: chronically ill appearing Eyes: PERRL Ears, Nose, Mouth, Throat: hearing normal Cardiovascular: regular rate and rhythym Respiratory: reduced air movement (midlobe down, L > R), No no respiratory distress (increase wob with talking) Gastrointestinal: normoactive bowel sounds Skin: warm Musculoskeletal: full muscle strength Neurologic: AAOx3 Psychiatric: interacting appropriately ICD10 Worksheet Patient Problems: Problems Problem Status Onset COPD exacerbation Acute PNA (pneumonia) Acute
[2018-07-13] MEDS ORDERED: methylPREDNISolone SOD SUCC 125 MG/2 ML VIAL IVP SCH (09:00)
[2018-07-13] MEDS: predniSONE 20 MG TAB PO SCH (09:18)
[2018-07-13] MEDS: PANTOPRAZOLE SODIUM 40 MG TAB PO SCH (09:19)
[2018-07-13] MEDS: ENOXAPARIN 40 MG/0.4 ML SYR SC SCH (09:20)
[2018-07-13] MEDS: LEVOTHYROXINE 100 MCG TAB PO SCH (09:26)
[2018-07-13] MEDS: FLUTICASONE/SALMETER 250/50MCG DISKUS IH SCH ×2 (10:15→20:52)
[2018-07-13] MEDS: IPRATROPIUM/ALBUTEROL 3 ML DEYVIAL IH SCH ×3 (10:15→20:47)
[2018-07-13] MEDS: TIOTROPIUM INHALER 18 MCG/DOSE 5 DOSE/MDI IH SCH (10:16)
--- NOTE | 2018-07-13 13:42 | PDMN ---
Medical Necessity Medical necessity: Pt meets IP criteria per MD & MCG M-160; est los >2 mn for eval/tx of severe sepsis w/COPD exacerbation & pneumonia; admit for further monitoring, IVFs, IV abx & respiratory supportive care; hx COPD; per H&P & order 07/12/18
[2018-07-13] MEDS: CALCIUM CARBONATE 500 MG CHEWABLE TAB PO PRN ×3 (15:46→23:12)
[2018-07-13] MEDS: FAMOTIDINE 20 MG TAB PO SCH (21:16)
[2018-07-14] MEDS: LEVOTHYROXINE 100 MCG TAB PO SCH (05:40)
[2018-07-14 07:34] LABS: PLATELET COUNT 250 10^3/uL (150-400)
[2018-07-14 08:05] VITALS: BP 105/67
[2018-07-14] MEDS ORDERED: PRAVASTATIN SODIUM 20 MG TAB PO SCH (09:00)
[2018-07-14] MEDS: FLUTICASONE/SALMETER 250/50MCG DISKUS IH SCH (09:05)
[2018-07-14] MEDS: TIOTROPIUM INHALER 18 MCG/DOSE 5 DOSE/MDI IH SCH (09:05)
[2018-07-14] MEDS: IPRATROPIUM/ALBUTEROL 3 ML DEYVIAL IH SCH (09:05)
[2018-07-14] MEDS: predniSONE 20 MG TAB PO SCH (09:49)
[2018-07-14] MEDS: FAMOTIDINE 20 MG TAB PO SCH (09:49)
[2018-07-14] MEDS: PANTOPRAZOLE SODIUM 40 MG TAB PO SCH (09:49)
[2018-07-14] MEDS: ENOXAPARIN 40 MG/0.4 ML SYR SC SCH (09:51)
--- NOTE | 2018-07-14 10:13 | ASMTCMCOM ---
CM Note CM Note Notes: Met with Pt and chart reviewed for discharge. Ashley is a 63 yr old adm with a persistent cough, fever and fatigue who needs continuous oxygen. Pt has a history of COPD. Pt is anxious about going home because she cares for her sons children while he is a patient at [facility]. Pts meds are being changed from IV to Po. Pt has a friend Michael. Pt is demanding to go home today as she is feeling better. She has a oxygen concentrator at home that she does not always use it. Pt report she has no needs. CM available for needs. PLAN: Likely home independently. Date Signed: 07/14/2018 10:13 AM Electronically Signed By:Dariana Gil
--- NOTE | 2018-07-14 10:25 | ASMTLACE ---
HEBERT Length of stay for Answers: 2 days current admission Acuity / Level of Answers: No Care: Did the patient have an inpatient admission? Comorbidities - select Answers: Chronic pulmonary disease all that apply Other Notes: Hypothyroid, Anxious, # of Emergency department Answers: 1-2 visits in the last 6 months Score: 6 Date Signed: 07/14/2018 10:24 AM Electronically Signed By:Dariana Gil
--- NOTE | 2018-07-14 14:01 | GDS ---
[f rep st] DISCHARGE SUMMARY DISCHARGE DIAGNOSES: 1. Lingular pneumonia. 2. Acute exacerbation of chronic obstructive pulmonary disease. 3. Acute hypoxemic respiratory failure, improved. 4. Severe sepsis, resolved. 5. Hyponatremia, improved. 6. Tobacco dependence. 7. Gastroesophageal reflux disease. HISTORY OF DETAILS: Please see history and physical dated July 13, 2018. In brief, the patient is a 63-year-old female with a history of COPD who apparently has nocturnal oxygen for home use, though states she rarely uses this. Presented to the emergency department with cough and shortness of breat h. Chest x-ray showed a new consolidation/pneumonia in the lingula and [facility]. HOSPITAL COURSE: Patient was admitted to the med/surg unit. She has required 4 L of oxygen by nasal cannula though on the day of discharge, she has been weaned down to 2 L per minute. She was treated initially with IV Solu-Medrol and antibiotics, as well as scheduled DuoNeb with p.r.n. albuterol neb s. As above, we were able to wean her O2 down from 4 to 2 L per minute. She overall feels her condi tion is significantly improved and she is very adamant about discharging home today. I think this is reasonable, especially since she already has home oxygen. She is advised she should continue home o xygen at 3 L/minute, day and night, and I recommend she have close outpatient followup with her pulmo nologist. She is also referred to a local [place] pulmonology group, if it is more convenient for he r, as she states it is difficult her to find time to get to [place] to be seen at [facility]. We discussed that she would continue Duoneb at home 3 times daily until she is back to her baseline, at which time she can resume her Spiriva. She can also use p.r.n. albuterol nebs and will complete a s teroid burst and antibiotic course. DISPOSITION: Patient is discharged home in stable condition. FOLLOWUP: 1. Primary care. 2. Dr. Ashok Aguiar, pulmonology, or [facility] paper baler with whom she has already esta blished. DISCHARGE MEDICATIONS: Please see [facility] ([facility]) for completed admission medication list. New medications on discharge include: 1. DuoNeb 3 mL inhaled t.i.d., #30, no refills. 2. Levaquin 750 mg p.o. daily, #5, to complete a 7-day course. 3. Prednisone 60 mg p.o. daily, #9, to complete a 5-day steroid burst. She will continue all outpatient medications as previously prescribed includin. Albuterol. 2. Levothyroxine 100 mcg p.o. daily. 3. Spiriva 18 mcg inhaled once daily, which she will resume once her condition has returned to basel ine and she stops DuoNeb. 4. Omeprazole 20 mg p.o. daily. 5. Advair 250/50 one puff inhaled b.i.d. 6. Ranitidine 300 mg p.o. q.h.s. 7. Pravastatin 20 mg p.o. daily. /[id number]/MODL
== END 2018-07-14 10:26 | disposition home or self-care (01) | DRG 720 ==
LOC: F3N 22:07
PROVIDERS: ADMIT Family Medicine; ATTEND Hospitalist
DX: A41.9 Sepsis, unspecified organism (principal); J96.01 Acute respiratory failure with hypoxia; J44.0 Chronic obstructive pulmonary disease with (acute) lower respiratory infection; J18.8 Other pneumonia, unspecified organism; E86.9 Volume depletion, unspecified; R65.20 Severe sepsis without septic shock; J44.1 Chronic obstructive pulmonary disease with (acute) exacerbation; E87.1 Hypo-osmolality and hyponatremia; F17.200 Nicotine dependence, unspecified, uncomplicated; K21.9 Gastro-esophageal reflux disease without esophagitis; E03.9 Hypothyroidism, unspecified; L40.8 Other psoriasis; Z23 Encounter for immunization
CPT/HCPCS: 96365; G0008; J0696; J1650; J1885; J1956; J2405; J2930; J7512; J7613